=== PATIENT | male | born 1950 | race Caucasian/White ===

== ENCOUNTER 2017-04-13 11:31 | Outpatient (CLI) | payer OTHER ==
[~2017-04-13] VITALS: Ht 167.6 cm; Wt 100.7 kg
[~2017-04-13 11:31] MED LIST: AVAPRO300 MG PO; CATAFLAM50 MG PO; LUBRICANT EYE15 M1 OP; METROPOLOL PO; NABUMETONE500 MG PO; PERCOCET 5/3251 TAB PO; ZYRTEC10 M3 PO
== END 2017-04-13 11:45 | disposition home or self-care (01) ==
LOC: OFIC 805 11:31
DX: H81.13 Benign paroxysmal vertigo, bilateral (principal); R42 Dizziness and giddiness

== ENCOUNTER 2017-06-12 13:54 | Emergency (ER) | payer OTHER ==
[~2017-06-12] VITALS: Ht 167.6 cm; Wt 104.3 kg
[2017-06-12] MEDS ORDERED: ZOLOFT50 MG PO (14:33)
== END 2017-06-12 19:09 | disposition home or self-care (01) ==
LOC: ER 13:54
DX: N39.0 Urinary tract infection, site not specified (principal)

== ENCOUNTER 2018-01-06 09:59 | Outpatient (CLI) | payer OTHER ==
[~2018-01-06 09:59] MED LIST changes: +ZOLOFT50 MG PO
== END 2018-01-06 10:15 | disposition home or self-care (01) ==
LOC: NUCLEAR 09:59
DX: I11.9 Hypertensive heart disease without heart failure (principal); I20.8 Other forms of angina pectoris
CPT/HCPCS: A9500; 78452; 93017; 93306

== ENCOUNTER 2018-01-13 10:16 | Outpatient (CLI) | payer OTHER | END 2018-01-13 15:00 | disposition home or self-care (01) | LOC: RAD 10:16 | DX: M25.522 Pain in left elbow (principal) ==

== ENCOUNTER 2018-09-27 09:17 | Emergency (ER) | payer OTHER ==
[~2018-09-27] VITALS: Ht 167.6 cm; Wt 103.4 kg
[2018-09-27] MEDS ORDERED: METFORMIN HCL1000 M1 (09:28)
[2018-09-27] MEDS ORDERED: DARIFENACIN ER7.5 MG (09:28)
[2018-09-27] MEDS ORDERED: TOPROL XL100 M1 (09:28)
[2018-09-27] MEDS ORDERED: UROXATRAL10 MG (09:29)
[2018-09-27] MEDS ORDERED: ZOLOFT100 MG (09:29)
[2018-09-27] MEDS ORDERED: ANASTROZOLE1 MG (09:29)
[2018-09-27] MEDS ORDERED: LOTEMAX5 GM (09:30)
== END 2018-09-27 12:14 | disposition home or self-care (01) ==
LOC: ER 09:17
DX: L02.411 Cutaneous abscess of right axilla (principal); B95.62 Methicillin resistant Staphylococcus aureus infection as the cause of diseases classified elsewhere

== ENCOUNTER 2019-08-14 09:31 | Outpatient (CLI) | payer OTHER ==
[~2019-08-14] VITALS: Ht 152.4 cm; Wt 102.1 kg
[~2019-08-14 09:31] MED LIST changes: +ANASTROZOLE1 MG; +DARIFENACIN ER7.5 MG; +LOTEMAX5 GM; +METFORMIN HCL1000 M1; +TOPROL XL100 M1; +UROXATRAL10 MG; +ZOLOFT100 MG
[2019-08-14] MEDS ORDERED: MECLIZINE HCL12.5 MG PO (12:17)
== END 2019-08-14 12:47 | disposition home or self-care (01) ==
LOC: OFIC 805 09:31
PROVIDERS: ATTEND Otolaryngology
DX: R22.1 Localized swelling, mass and lump, neck (principal); H81.13 Benign paroxysmal vertigo, bilateral; H61.22 Impacted cerumen, left ear

== ENCOUNTER 2019-08-14 14:26 | Outpatient (CLI) | payer OTHER ==
[~2019-08-14 14:26] MED LIST changes: +MECLIZINE HCL12.5 MG PO
== END 2019-08-14 14:41 | disposition home or self-care (01) ==
LOC: SONOGRAMA 14:26
PROVIDERS: ATTEND Otolaryngology
DX: R22.1 Localized swelling, mass and lump, neck (principal)

== ENCOUNTER 2019-10-02 11:25 | Outpatient (CLI) | payer OTHER | END 2019-10-02 16:35 | disposition home or self-care (01) | LOC: OFIC 805 11:25 | PROVIDERS: ATTEND Otolaryngology | DX: H81.12 Benign paroxysmal vertigo, left ear (principal); H61.22 Impacted cerumen, left ear; R22.1 Localized swelling, mass and lump, neck ==

== ENCOUNTER 2021-06-11 15:08 | Outpatient (CLI) | payer OTHER | END 2021-06-11 15:13 | disposition home or self-care (01) | LOC: TOM 15:08 | PROVIDERS: ATTEND Otolaryngology | DX: J32.3 Chronic sphenoidal sinusitis (principal); J01.90 Acute sinusitis, unspecified ==

== ENCOUNTER 2021-08-20 08:54 | Outpatient (CLI) | payer OTHER | END 2021-08-20 09:04 | disposition home or self-care (01) | LOC: SONOGRAMA 08:54 | PROVIDERS: ATTEND Surgery | DX: N40.1 Benign prostatic hyperplasia with lower urinary tract symptoms (principal) ==

== ENCOUNTER 2021-10-07 05:55 | Day surgery (SDC) | payer OTHER ==
[~2021-10-07] VITALS: Ht 167.6 cm; Wt 99.8 kg
[~2021-10-07 05:55] MED LIST changes: +ANASTROZOLE1 MG PO; +ENABLEX PO; +GLIMEPIRIDE1 MG; +LIPITOR40 MG PO; +NIFEDIPINE20 MG PO; +TAMS0.4C PO
[2021-10-07] MEDS ORDERED: PERCOCET 5-3251 EACH PO (12:36)
== END 2021-10-07 14:15 | disposition home or self-care (01) ==
LOC: CIR.AMB 05:55
PROVIDERS: ATTEND Surgery
DX: N52.01 Erectile dysfunction due to arterial insufficiency (principal); Z20.822 Contact with and (suspected) exposure to COVID-19; I10 Essential (primary) hypertension; E78.5 Hyperlipidemia, unspecified
CPT/HCPCS: 54405; C1813

== ENCOUNTER 2022-06-29 15:16 | Outpatient (CLI) | payer OTHER ==
[~2022-06-29 15:16] MED LIST changes: +PERCOCET 5-3251 EACH PO
== END 2022-06-29 15:20 | disposition home or self-care (01) ==
LOC: SONOGRAMA 15:16
PROVIDERS: ATTEND Surgery
DX: N39.0 Urinary tract infection, site not specified (principal)

== ENCOUNTER 2022-10-11 13:48 | Emergency (ER) | payer OTHER ==
[~2022-10-11] VITALS: Ht 167.6 cm; Wt 104.3 kg
[2022-10-11] MEDS ORDERED: XYZAL5 MG PO (20:39)
[2022-10-11] MEDS ORDERED: PEPCID AC20 MG PO (20:39)
== END 2022-10-11 20:50 | disposition home or self-care (01) ==
LOC: ER 13:48
DX: K52.9 Noninfective gastroenteritis and colitis, unspecified (principal); T61.01XA Ciguatera fish poisoning, accidental (unintentional), initial encounter; E86.0 Dehydration; E11.9 Type 2 diabetes mellitus without complications; Z79.84 Long term (current) use of oral hypoglycemic drugs; E78.00 Pure hypercholesterolemia, unspecified; I10 Essential (primary) hypertension
CPT/HCPCS: 36415; 96365; 99284; J1100; J1200; J3490